=== PATIENT | male | born 1990 | race Caucasian/White ===

== ENCOUNTER 2023-12-30 09:12 | Emergency (ER) | payer OTHER ==
[2023-12-30 09:40] VITALS: BP 110/71; TEMP 98; BMI 24.0
[2023-12-30 09:45] VITALS: PULSE 75; RESP 18
[2023-12-30 10:35] LABS: HEMATOCRIT 47.9 % (35.4-49); HEMOGLOBIN 15.4 G/dL (11.7-16.9); MCH 29.5 pg (25.7-33.7); MCHC 32.2 g/dl (32.0-35.9); MEAN CELL VOLUME 91.6 fl (80-96); MEAN PLT VOLUME 9.2 fl (7.5-11.1); PLATELET COUNT 245.6 10^3/uL (134-434); RBC 5.23 10^6/uL (4.00-5.60); RDW 14.5 % (11.9-15.9); WHITE BLOOD COUNT 12.1 10^3/uL (4.0-10.8)
[2023-12-30 10:40] LABS: ALBUMIN 4.5 g/dl (3.4-5.0); BILIRUBIN,TOTAL 0.4 mg/dl (0.2-1); CALCIUM 9.5 mg/dl (8.5-10.1); CREATININE 0.8 mg/dl (0.6-1.3); POTASSIUM 4.4 mmol/L (3.5-5.1); TOT PROT 7.4 g/dl (6.4-8.2)
[2023-12-30 10:41] LABS: PLATELET ESTIMATE ADEQUATE
== END 2023-12-30 12:06 | disposition home or self-care (01) ==
LOC: FER 09:12
DX: R06.02 Shortness of breath (principal); R00.2 Palpitations
CPT/HCPCS: 36415; 71046-TC-FY; 80053; 84484; 85027; 93005; 99285-25